=== PATIENT | female | born 1995 | race Caucasian/White ===

== ENCOUNTER 2017-11-11 12:45 | Emergency (ER) | payer OTHER ==
[2017-11-11] MEDS: LIDOCAINE WITH 8.4% SOD BICARB 3 ML DISP.SYRIN. IJ (13:03)
== END 2017-11-11 14:18 | disposition home or self-care (01) ==
LOC: ER 12:45
DX: S61.011A Laceration without foreign body of right thumb without damage to nail, initial encounter (principal); Z91.040 Latex allergy status; Y28.8XXA Contact with other sharp object, undetermined intent, initial encounter; Y93.89 Activity, other specified; Y99.8 Other external cause status; Y92.89 Other specified places as the place of occurrence of the external cause
CPT/HCPCS: 12001; 99283-25

== ENCOUNTER 2018-05-28 09:10 | Emergency (ER) | payer OTHER ==
[2018-05-28] MEDS: IV NORMAL SALINE 1000ML BAG 1,000 ML IV (10:17)
[2018-05-28] MEDS: KETOROLAC 30 MG/ML INJ. IV (10:18)
[2018-05-28] MEDS: methylPREDNISolone SOD SUCC PF 125 MG/2 ML VIAL. IV (10:18)
[2018-05-28] MEDS: ONDANSETRON PF 4 MG/2 ML VIAL. IV (10:22)
[2018-05-28] MEDS ORDERED: ONDANSETRON PF 4 MG/2 ML VIAL. (10:24)
[2018-05-28 10:26] LABS: ANION GAP 5 (6-14); BLOOD UREA NITROGEN 12 mg/dL (7-20); CALCIUM 8.6 mg/dL (8.5-10.1); CARBON DIOXIDE 29 mmol/L (21-32); CHLORIDE 103 mmol/L (98-107); CREATININE 0.9 mg/dL (0.6-1.0); GLUCOSE 117 mg/dL (70-99); POTASSIUM 3.6 mmol/L (3.5-5.1); SODIUM 137 mmol/L (136-145)
[2018-05-28 10:54] LABS: BASO % 0 % (0-3); EOS % 0 % (0-3); HEMATOCRIT 37.3 % (36.0-47.0); HEMOGLOBIN 12.7 g/dL (12.0-15.5); LYMPH # 0.7 x10^3/uL (1.0-4.8); LYMPH % 6 % (24-48); MEAN CORPUSCULAR HEMOGLOBIN 32 pg (25-35); MEAN CORPUSCULAR HGB CONC 34 g/dL (31-37); MEAN CORPUSCULAR VOLUME 93 fL (79-100); MONO # 0.9 x10^3/uL (0.0-1.1); MONO % 8 % (0-9); NEUT # 9.2 x10^3uL (1.8-7.7); NEUT % 86 % (31-73); PLATELET COUNT 154 x10^3/uL (140-400); RED BLOOD COUNT 4.01 x10^6/uL (3.50-5.40); RED CELL DISTRIBUTION WIDTH 12.9 % (11.5-14.5); WHITE BLOOD COUNT 10.8 x10^3/uL (4.0-11.0)
[2018-05-28 10:57] LABS: ADD MAN DIFF? YES
[2018-05-28 13:28] LABS: % BANDS 7 % (0-9); % LYMPHS 13 % (24-48); % MONOS 6 % (0-10); % SEGS 74 % (35-66)
[2018-05-28 13:30] LABS: PLT ESTIMATE ADEQUATE (ADEQUATE)
== END 2018-05-28 11:50 | disposition home or self-care (01) ==
LOC: ER 09:10
DX: H60.501 Unspecified acute noninfective otitis externa, right ear (principal); H66.91 Otitis media, unspecified, right ear; Z91.040 Latex allergy status
CPT/HCPCS: 36415; 80048; 85007; 85025; 96365; 96375; 99284; J0690; J1885; J2405; J2930; J7030

== ENCOUNTER → 2018-09-12 | Outpatient (CLI) | payer OTHER ==
[2018-05-28 09:10] VITALS: BP 135/83
[~2018-09-12] MED LIST: HYDR-971 PO; ONDA4TAB10 SL
[2018-09-12 01:24] LABS: ALBUMIN 4.2 g/dL (3.4-5.0); ALBUMIN/GLOBULIN RATIO 1.2 (1.0-1.7); CALCIUM 9.9 mg/dL (8.5-10.1); GFR 69.3; POTASSIUM 3.8 mmol/L (3.5-5.1); TOTAL BILIRUBIN 0.7 mg/dL (0.2-1.0); TOTAL PROTEIN 7.8 g/dL (6.4-8.2)
[2018-09-12 01:43] LABS: CHOLESTEROL/HDL RATIO 2.7
== END | disposition home or self-care (01) ==
LOC: LAB 00:39
PROVIDERS: ATTEND Family Medicine
DX: Z13.220 Encounter for screening for lipoid disorders (principal)
CPT/HCPCS: 36415; 80053; 80061

== ENCOUNTER 2018-11-14 23:54 | Emergency (ER) | payer OTHER ==
[~2018-11-14] VITALS: Ht 172.7 cm; Wt 72.6 kg
[~2018-11-14 23:54] MED LIST changes: +HYDR-3164 PO; -HYDR-971 PO
[2018-11-15] MEDS ORDERED: IPRATRPIUM/ALBUTEROL 0.5/2.5MG 3 ML NEBU. NEB ONE
[2018-11-15] MEDS ORDERED: predniSONE 10 MG TABLET PO ONE
[2018-11-15 00:01] VITALS: BP 119/63
[2018-11-15] MEDS ORDERED: AZIT250T PO (00:38)
[2018-11-15] MEDS ORDERED: HYDR5SUS PO (00:38)
[2018-11-15] MEDS ORDERED: ALBU2.5V8 INH (00:38)
[2018-11-15] MEDS ORDERED: PRED50TA PO (00:38)
--- NOTE | 2018-11-15 00:39 | PHYS DOC ---
Past Medical History Past Medical History: No Pertinent History Past Surgical History: No Surgical History Alcohol Use: Occasionally Drug Use: None Adult General Chief Complaint Chief Complaint: Congestion HPI HPI Patient is a 23 year old [f__sex] who presents with [] Review of Systems Review of Systems Constitutional: Denies fever or chills [] Eyes: Denies change in visual acuity, redness, or eye pain [] HENT: Denies nasal congestion or sore throat [] Respiratory: Denies cough or shortness of breath [] Cardiovascular: No additional information not addressed in HPI [] GI: Denies abdominal pain, nausea, vomiting, bloody stools or diarrhea [] : Denies dysuria or hematuria [] Musculoskeletal: Denies back pain or joint pain [] Integument: Denies rash or skin lesions [] Neurologic: Denies headache, focal weakness or sensory changes [] Endocrine: Denies polyuria or polydipsia [] All other systems were reviewed and found to be within normal limits, except as documented in this note. Current Medications Current Medications Current Medications Medications (Trade) Dose Ordered Sig/Rashel Start Time Stop Time Status Last Admin Dose Admin Albuterol/ Ipratropium (Duoneb) 3 ml 1X ONCE 11/15/18 00:00 11/15/18 00:01 DC 11/15/18 00:14 3 ML Prednisone (Prednisone) 50 mg 1X ONCE 11/15/18 00:00 11/15/18 00:01 DC 11/15/18 00:31 50 MG Allergies Allergies Allergies Coded Allergies Type Severity Reaction Last Updated Verified latex Allergy Unknown 11/11/17 Yes Physical Exam Physical Exam Constitutional: Well developed, well nourished, no acute distress, non-toxic appearance. [] HENT: Normocephalic, atraumatic, bilateral external ears normal, oropharynx moist, no oral exudates, nose normal. [] Eyes: PERRLA, EOMI, conjunctiva normal, no discharge. [] Neck: Normal range of motion, no tenderness, supple, no stridor. [] Cardiovascular:Heart rate regular rhythm, no murmur [] Lungs & Thorax: Bilateral breath sounds clear to auscultation [] Abdomen: Bowel sounds normal, soft, no tenderness, no masses, no pulsatile masses. [] Skin: Warm, dry, no erythema, no rash. [] Back: No tenderness, no CVA tenderness. [] Extremities: No tenderness, no cyanosis, no clubbing, ROM intact, no edema. [] Neurologic: Alert and oriented X 3, normal motor function, normal sensory function, no focal deficits noted. [] Psychologic: Affect normal, judgement normal, mood normal. [] Current Patient Data Vital Signs Vital Signs Date Time Temp Pulse Resp B/P (MAP) Pulse Ox O2 Delivery O2 Flow Rate FiO2 11/15/18 00:13 100 Room Air 11/15/18 00:01 99.0 78 20 119/63 (81) 99.0 EKG EKG [] Radiology/Procedures Radiology/Procedures [] Course & Med Decision Making Course & Med Decision Making Pertinent Labs and Imaging studies reviewed. (See chart for details) [] Dragon Disclaimer Dragon Disclaimer This electronic medical record was generated, in whole or in part, using a voice recognition dictation system. Departure Departure Impression: Primary Impression: Bronchitis Disposition: HOME, SELF-CARE Condition: STABLE Referrals: REYNA FALL DO (PCP) Patient Instructions: Acute Bronchitis Additional Instructions: Take the medications as directed. Do not drive or operate heavy machinery while taking the cough medication. Follow-up with your primary care provider in 3-4 days if not improving or return to the emergency department if worsening. Scripts Hydrocodone/Chlorphen Polis (HYDROCODONE-CHLORPHENIRAM SUSP) 5 Ml Cherry.er.12h 5 ML PO PRN Q12HR PRN for COUGH, #120 ML 0 Refills Prov: ROHIT DAMICO APRN 11/15/18 Prednisone (PREDNISONE) 50 Mg Tablet 1 TAB PO DAILY for bronchitis, #5 TAB Prov: ROHIT DAMICO APRN 11/15/18 Albuterol Sulfate (Proair Hfa) 8.5 Gm Hfa.aer.ad 1 PUFF INH PRN Q6HRS PRN for SHORTNESS OF BREATH, #1 INHALER Prov: ROHIT DAMICO APRN 11/15/18 Azithromycin (ZITHROMAX) 250 Mg Tablet 1 PKG PO UD for bronchitis, #1 PKG Prov: ROHIT DAMICO APRN 11/15/18 ROHIT DAMICO APRN Nov 15, 2018 00:39
== END 2018-11-15 00:43 | disposition home or self-care (01) ==
LOC: ER 23:54
DX: J40 Bronchitis, not specified as acute or chronic (principal); Z91.040 Latex allergy status
CPT/HCPCS: 94640; 99283; J7512; J7620

== ENCOUNTER 2018-12-24 17:14 | Emergency (ER) | payer OTHER ==
[~2018-12-24] VITALS: Ht 172.7 cm; Wt 72.6 kg
[~2018-12-24 17:14] MED LIST changes: +ALBU2.5V8 INH; +AZIT250T PO; +HYDR5SUS PO; +PRED50TA PO
[2018-12-24 17:18] VITALS: BP 132/73
[2018-12-24] MEDS ORDERED: AMOX1TAB61 PO (17:50)
--- NOTE | 2018-12-24 17:50 | PHYS DOC ---
Past Medical History Past Medical History: Other Additional Past Medical Histor: SWELLING Past Surgical History: No Surgical History Alcohol Use: Occasionally Drug Use: None Adult General Chief Complaint Chief Complaint: SORE THROAT HPI HPI Patient is a 23 year old female who presents to the emergency department with complaints of a sore throat for the last 6 days. Patient also reports nasal congestion, fatigue, and body aches. She denies any known fever, nausea, vomiting, diarrhea, cough, shortness breath, ear pain, or rash. Patient states she has had mono in the past and her symptoms feel similar to that. Review of Systems Review of Systems Constitutional: Denies fever or chills [] Eyes: Denies redness, or eye pain [] HENT: See HPI Respiratory: Denies cough or shortness of breath [] Cardiovascular: No additional information not addressed in HPI [] GI: Denies abdominal pain, nausea, vomiting, or diarrhea [] Musculoskeletal: Reports body aches Integument: Denies rash or skin lesions [] Neurologic: Denies headache, focal weakness or sensory changes [] Allergies Allergies Allergies Coded Allergies Type Severity Reaction Last Updated Verified latex Allergy Unknown 11/11/17 Yes Physical Exam Physical Exam Constitutional: Well developed, well nourished, no acute distress, non-toxic appearance. [] HENT: Normocephalic, atraumatic, bilateral external ears normal, bilateral TMs nomral, cobblestone appearance of posterior pharynx with mild erythema, oropharynx moist, no oral exudates, nasal turbinates edematous and erythematous ; maxillary sinus TTP. Eyes: conjunctiva normal, no discharge. [] Neck: Normal range of motion, no tenderness, supple, no stridor. [] Cardiovascular:Heart rate regular rhythm, no murmur [] Lungs & Thorax: Bilateral breath sounds clear to auscultation [] Skin: Warm, dry, no erythema, no rash. [] Extremities: No cyanosis, ROM intact Neurologic: Alert and oriented X 3, normal motor function, normal sensory function, no focal deficits noted. [] Psychologic: Affect normal, judgement normal, mood normal. [] Current Patient Data Vital Signs Vital Signs Date Time Temp Pulse Resp B/P (MAP) Pulse Ox O2 Delivery O2 Flow Rate FiO2 12/24/18 17:18 98.5 90 16 132/73 (92) 99 Room Air 98.5 EKG EKG [] Radiology/Procedures Radiology/Procedures rapid strep negative[] Course & Med Decision Making Course & Med Decision Making Pertinent Labs and Imaging studies reviewed. (See chart for details) dx: Sinusitis Rx for augmentin written. Tylenol or ibuprofen as needed for pain/fever. Increase clear fluids, recommend using cool mist humidifier. Follow up with PCP if sx persist, return to ER if sx worsen. Patient verbalized an understanding of home care, medications, follow-up, and return to ED instructions and was in agreement with the plan of care. [] Dragon Disclaimer Dragon Disclaimer This electronic medical record was generated, in whole or in part, using a voice recognition dictation system. Departure Departure Impression: Primary Impression: Acute maxillary sinusitis, unspecified Additional Impression: Pharyngitis, acute Disposition: 01 HOME, SELF-CARE Condition: STABLE Referrals: HANNA LOW MD (PCP) Patient Instructions: Sinusitis, [id number], Viral and Bacterial Pharyngitis , [id number] Additional Instructions: Fill prescription(s) and use as directed. Recommend use of a Cool mist humidifier in room at bedtime. Alternate Tylenol or ibuprofen as needed for pain /fever. Increase clear fluids. Avoid airway triggers such as smoke, fragrance, dust, and pollen. Recommend warm salt water gargles as needed for relief of discomfort. Follow-up with primary care doctor if symptoms persist. Return to the ER if symptoms worsen. Scripts Amoxicillin/Potassium Clav (AUGMENTIN 875-125 TABLET) 1 Each Tablet 1 TAB PO BID, #14 TAB 0 Refills Prov: MELODIE CAREY APRN 12/24/18 Problem Qualifiers Primary Impression: Acute maxillary sinusitis, unspecified Recurrence: not specified as recurrent Qualified Codes: J01.00 - Acute maxillary sinusitis, unspecified Additional Impression: Pharyngitis, acute Pharyngitis/tonsillitis etiology: unspecified etiology Qualified Codes: J02.9 - Acute pharyngitis, unspecified MELODIE CAREY POULTRY SCIENTIST Dec 24, 2018 17:50
[2019-06-27] MEDS ORDERED: ASPI325T8 PO (08:52)
== END 2018-12-24 17:51 | disposition home or self-care (01) ==
LOC: ER 17:14
DX: J02.9 Acute pharyngitis, unspecified (principal); J01.00 Acute maxillary sinusitis, unspecified; R53.83 Other fatigue; Z91.040 Latex allergy status
CPT/HCPCS: 87070; 87880; 99283

== ENCOUNTER 2019-02-07 03:43 | Emergency (ER) | payer OTHER ==
[~2019-02-07] VITALS: Ht 172.7 cm; Wt 72.6 kg
[~2019-02-07 03:43] MED LIST changes: +AMOX1TAB61 PO
[2019-02-07 03:45] VITALS: BP 128/79
--- NOTE | 2019-02-07 04:34 | PHYS DOC ---
Past Medical History Past Medical History: Other Additional Past Medical Histor: SWELLING Past Surgical History: No Surgical History Alcohol Use: Occasionally Drug Use: None Adult General Chief Complaint Chief Complaint: not feeling well HPI HPI Patient is a 23-year-old female who presents with complaint of just not feeling well. She indicates that she has been nauseated and having some aches in her back and abdomen. She denies any fever. She denies any vomiting or diarrhea. Review of Systems Review of Systems Constitutional: Denies fever or chills [] Respiratory: Denies cough or shortness of breath [] Cardiovascular: No additional information not addressed in HPI [] GI: Denies abdominal pain, vomiting or diarrhea. Admits to nausea. [] : Denies dysuria or hematuria [] Musculoskeletal: Positive backache/pain [] Allergies Allergies Allergies Coded Allergies Type Severity Reaction Last Updated Verified latex Allergy Unknown 11/11/17 Yes Physical Exam Physical Exam Constitutional: Well developed, well nourished, no acute distress, non-toxic appearance. [] Cardiovascular: Regular rate and rhythm[] Lungs & Thorax: Bilateral breath sounds clear to auscultation [] Abdomen: Bowel sounds normal, soft, no tenderness. [] Skin: Warm, dry, no erythema, no rash. [] Current Patient Data Vital Signs Vital Signs Date Time Temp Pulse Resp B/P (MAP) Pulse Ox O2 Delivery O2 Flow Rate FiO2 02/07/19 03:45 97.9 85 18 128/79 (95) 97 Room Air 97.9 Lab Values Laboratory Tests Test 02/07/19 03:50 Maternal Serum HCG Beta Subunit < 1 mIU/mL (0-5) EKG EKG [] Radiology/Procedures Radiology/Procedures [] Course & Med Decision Making Course & Med Decision Making Pertinent Labs and Imaging studies reviewed. (See chart for details) [] Dragon Disclaimer Dragon Disclaimer This electronic medical record was generated, in whole or in part, using a voice recognition dictation system. Departure Departure Impression: Primary Impression: Normal exam Disposition: 01 HOME, SELF-CARE Condition: STABLE Referrals: HANNA LOW MD (PCP) Patient Instructions: Exam, Normal, Adult SENAIT BRYANT Jr. DO Feb 07, 2019 04:34
== END 2019-02-07 04:30 | disposition home or self-care (01) ==
LOC: ER 03:43
DX: Z04.89 Encounter for examination and observation for other specified reasons (principal); R10.9 Unspecified abdominal pain; M54.9 Dorsalgia, unspecified; R11.0 Nausea; Z91.040 Latex allergy status
CPT/HCPCS: 36415; 84702; 99283

== ENCOUNTER → 2019-06-12 | Outpatient (CLI) | payer OTHER ==
--- NOTE | 2019-06-12 15:09 | RAD ---
Examination: 4 views of the left knee HISTORY: History of left knee pain, injury COMPARISON: None available. FINDINGS: The alignment of the knee joint grossly appears unremarkable. There is no acute fracture or dislocation identified. IMPRESSION: No acute osseous findings. Electronically signed by: Feliciano Brito MD (06/12/2019 3:06 PM) [place] [id number]
== END | disposition home or self-care (01) ==
LOC: RAD 12:22
PROVIDERS: ATTEND Family Medicine
DX: M25.562 Pain in left knee (principal)
CPT/HCPCS: 73564

== ENCOUNTER → 2019-06-12 | Outpatient (CLI) | payer OTHER ==
--- NOTE | 2019-06-12 14:00 | RAD ---
MR#: [id number] Date of Study: 06/12/2019 Ordering Physician: LESLYE TOLEDO, Referring Physician: LESLYE TOLEDO, Tech: Reyna Rachel RDMS, RVT, RTR APPROVED REPORT Patient Location : OUT-PATIENT Indications Lower Extremity Edema : Bilateral VENOUS INSUFFICIENCY Deep System Deep Venous Reflux present : Bilateral Greater Saphenous Veins (GSV) Significant venous relux noted in the RIGHT GSV at the following levels : Superficial Femoral Junctio n, Proximal Thigh, Mid Thigh, Distal Thigh Significant venous relux noted in the LEFT GSV at the following levels : Superficial Femoral Junction , Proximal Thigh, Mid Thigh, Distal Thigh, Proximal Calf, Mid Calf, Distal Calf Findings Grayscale images of the bilateral saphenofemoral junctions do not reveal any obvious evidence of thro mbus. The bilateral greater and lesser saphenous veins do not show any evidence of thrombus. The right great saphenous vein has a diameter of 5 mm and has a reflux time of 1.7 seconds. The left great saphenous vein measures 4.6 mm and has a reflux time of 2.6 seconds. Bilateral lesser saphenous veins do not show any evidence of reflux. Critical Notification Critical Value: No <Conclusion> 1. Positive for reflux in the bilateral greater saphenous veins. Signed by : Leslye Toledo, Electronically Approved : 06/12/2019 14:00:26
== END | disposition home or self-care (01) ==
LOC: US 14:52
PROVIDERS: ATTEND Internal Medicine Cardiovascular Disease
DX: I87.2 Venous insufficiency (chronic) (peripheral) (principal)
CPT/HCPCS: 93970

== ENCOUNTER → 2019-06-19 | Outpatient (CLI) | payer OTHER ==
--- NOTE | 2019-06-19 14:30 | KCIC ---
STUDY: MRI of the left knee without contrast INDICATION: Left knee swelling. COMPARISON: None. TECHNIQUE: Multiplanar MR imaging of the left knee performed without the use of intravenous or intra-articular contrast. FINDINGS: Menisci: The medial and lateral menisci are intact. Cruciate ligaments: The PCL is intact. The ACL is intact with an ganglion cyst as seen on image 14 series 5. Collateral ligaments: The medial and lateral collateral ligamentous structures are intact. The IT band is unremarkable. Tendons: The extensor tendon complex is within normal limits, as are the additional tendons at the knee. Cartilage: Patellofemoral: Mild chondral heterogeneity without full thickness defect at the mid to inferior medial trochlea, image 15 series 5. Lateral compartment: Intact. Medial compartment: Intact. Bones: No acute fracture. Miscellaneous: No significant knee joint effusion. Very mild lateral patellar tilt with the TT-TG distance within normal limits at 15 mm. IMPRESSION: 1. No acute internal derangement of the left knee. 2. ACL intracruciate ganglion cyst, image 14 series 5, which may be an incidental finding or could potentially be related to prior partial ACL injury. Intact traversing fibers remain. Electronically signed by: GRIFFIN BARLOW MD (06/19/2019 2:27 PM) [facility]
== END | disposition home or self-care (01) ==
LOC: KCIC MRI 12:18
PROVIDERS: ATTEND Orthopaedic Surgery
DX: M67.462 Ganglion, left knee (principal)
CPT/HCPCS: 73721

== ENCOUNTER 2019-06-27 05:57 | Day surgery (SDC) | payer OTHER ==
[~2019-06-27] VITALS: Ht 172.7 cm; Wt 77.1 kg
[2019-06-27] MEDS ORDERED: BUPIVACAINE MPF 0.5% 30 ML VIAL. ONE (06:04)
[2019-06-27] MEDS ORDERED: DEXAMETHASONE SOD PHOS 4 MG/ML VIAL ONE (06:14)
[2019-06-27] MEDS ORDERED: ONDANSETRON PF 4 MG/2 ML VIAL. ONE (06:14)
[2019-06-27] MEDS ORDERED: LIDOCAINE 2% PF 5 ML VIAL. ONE (06:14)
[2019-06-27] MEDS ORDERED: PROPOFOL 20 ML IV ONE (06:14)
[2019-06-27] MEDS ORDERED: fentaNYL PF VIAL 100 MCG/2 ML VIAL ONE (06:31)
[2019-06-27] MEDS ORDERED: SPIR50TA4 PO (06:36)
[2019-06-27] MEDS ORDERED: HYDROmorphone 2 MG/ML VIAL IV PRN (07:00)
[2019-06-27] MEDS ORDERED: ONDANSETRON PF 4 MG/2 ML VIAL. IV PRN (07:00)
[2019-06-27] MEDS ORDERED: MORPHINE SULFATE 2 MG/ML VIAL. IV PRN (07:00)
[2019-06-27] MEDS ORDERED: PROCHLORPERAZINE 10 MG/2 ML VIAL. IV PRN (07:00)
[2019-06-27] MEDS ORDERED: LIDOCAINE 1% PF 2 ML VIAL. ID PRN (07:00)
[2019-06-27] MEDS ORDERED: fentaNYL PF VIAL 100 MCG/2 ML VIAL IV PRN ×2 (07:00)
[2019-06-27] MEDS ORDERED: IV RINGERS,LACTATED 1000ML 1,000 ML IV SCH (07:00)
[2019-06-27] MEDS ORDERED: HYDR-2765 PO ×2 (08:30→08:31)
[2019-06-27] MEDS ORDERED: HYDROcodone/APAP 7.5/325MG 1 TAB TABLET PO ONE (08:45)
--- NOTE | 2019-06-27 08:51 | DISCH ---
DISCHARGE INSTRUCTIONS Condition on Discharge Condition on Discharge: Stable Activity After Discharge Activity Instructions for Disc: Other, see below (advance activity slowly as tolerated, expect off work about 2 weeks due to swelling) Weight Bearing Status after Di: As tolerated Diet after Discharge Diet after Discharge: Regular Wound Incision Care Wound/Incision Care: Change dressing (remove dressing in 2 days may then shower no soaking until sutures out) Contacting the after DC Call your doctor for: Concerns you may have Follow-Up Follow up with: Dr. Quintero 10 days JORDAN QUINTERO MD Jun 27, 2019 08:51
[2019-06-27] MEDS ORDERED: ASPI325T8 PO (08:52)
[2019-06-27 09:01] VITALS: BP 114/65
--- NOTE | 2019-06-27 14:20 | PDOC4 ---
Operative Note Operative Note Date of surgery: 06/27/2019 Preoperative diagnosis: Symptomatic anterior cruciate ligament cyst Postoperative diagnosis: Same plus medial parapatellar plica Operative procedure: Left knee arthroscopy debridement of anterior cruciate ligament synovial cyst and excision medial parapatellar plica Surgeon: Leon Anesthesia: Gen. Estimated blood loss: 2 mL Complications: None Operative indications: Please see my preoperative clinic note for detailed operative indications and note that Eric was having sharp pain in bringing her knee rapidly out into extension. MRI had shown the presence of an ACL cyst which can likely cause impingement ligaments and menisci were otherwise intact and I told her that this is likely but not certainly the cause of her pain and described the possibility of debridement and addressing any other pathologic conditions. We discussed the possibility of infection nerve or blood vessel damage continued pain medical or other anesthetic consultations among others all her questions were answered and she wishes to proceed with surgical evaluation and treatment. Operative text: Patient was identified procedure verified patient placed in the supine position on the operating table. After adequate amounts of general anesthesia were administered the left lower extremity was prepped and draped in standard sterile fashion and after timeout was performed exsanguinated by Esmarch bandage tourniquet inflated to 350 mmHg a lateral portal was established a medial portal established using spinal needle localization and the knee joint was systematically examined. No loose bodies were noted in the gutters or suprapatellar pouch she had excellent patellofemoral tracking and condition of the cartilage surfaces medial meniscus was probed and found to be intact as was the lateral meniscus medial and lateral cartilage surfaces noted to be in excellent condition free from any significant chondromalacia. She did have a large cyst anterior to the anterior cruciate ligament that definitely did impingement as the knee was brought into full extension this was debrided back to a normal ACL contour which was otherwise uncompromised. She did have a medial parapatellar plica and although there was not surrounding redness there was some mild cartilage irregularity over the edge of the medial femoral condyle and therefore I elected to debride the plica back to normal contour of the joint synovium. The joint was drained of arthroscopic fluid was closed with nylon suture a total of 30 mL half percent plain Marcaine were injected around the portals and fat pad area sterile dressings were applied patient was returned to recovery room in stable condition having tolerated procedure well toes are noted be warm pink find deflation of tourniquet after total tourniquet time of approximately 13 minutes JORDAN REECE MD Jun 27, 2019 14:20
== END 2019-06-27 09:36 | disposition home or self-care (01) ==
LOC: SURG 05:57
PROVIDERS: ATTEND Orthopaedic Surgery
DX: M67.52 Plica syndrome, left knee (principal); M25.862 Other specified joint disorders, left knee; Z91.040 Latex allergy status
CPT/HCPCS: 29875; 81025; A7015; C1782; J0690; J1100; J2001; J2405; J2704; J3010; J3490

== ENCOUNTER → 2019-07-08 | Outpatient (CLI) | payer OTHER ==
[2019-06-27 09:01] VITALS: BP 114/65
[~2019-07-08] MED LIST changes: +ASPI325T8 PO; +HYDR-2765 PO; +SPIR50TA4 PO
--- NOTE | 2019-07-08 15:18 | CARD ---
MR#: [id number] Date of Study: 07/08/2019 Ordering Physician: LAVERNE DAVIS, Referring Physician: LAVERNE DAVIS Tech: Reyna PATET: Vinicius SINGH;IRENE APPROVED REPORT Patient StatusOUT-PATIENT Hose Operator: Reyna Rachel RVT: Vinicius SINGH;IRENE Procedure(s) performed: Endovenous Venaseal ablation of the Left greater saphenous vein. INDICATION FOR PROCEDURE The indication(s) include : Symptomatic Chronic Venous Insufficiency with Varicose Veins, lower extre mity pain and edema. PROCEDURE NARRATIVE After explaining the risks, benefits and alternative options, informed consent was obtained from sylvain ent. Patient was brought to the procedure suite and duplex ultrasound was used to map out the insuffi cient saphenous vein. The access site was determined and marked on the overlying skin. The depth and diameter of the vein (s) to be treated was documented. The patient was placed supine on the procedure table and the leg was prepped and draped using sterile technique. Ultrasound guidance was again used to localize the access site. 1% lidocaine was injected into the sk in and subcutaneous tissues for local anesthesia. Using ultrasound guidance, access was obtained in t he saphenous vein with a 19-gauge thin-walled needle followed by introduction of a short guidewire. T he intraluminal location was confirmed with ultrasound and a 7 Spanish 7 cm sheath was inserted into t he vein. A 0.035 inch guidewire from the Venaseal kit was then introduced and positioned at the saphe nofemoral junction using ultrasound guidance. The 80 cm 7 Spanish introducer sheath/dilator was positi oned 5 cm from the saphenofemoral junction. The guidewire and dilator were removed and the remaining sheath was flushed with sterile saline, with the syringe remaining in place prior to the next steps. The Cyanoacrylate adhesive was loaded into a 3 cc syringe that was then attached to the 5F delivery c athter and loaded on to the Dispenser gun.The catheter was primed precisely and this 'assembly' was i ntroduced through the 7 Spanish sheath and positioned 5 cm caudal to the saphenofemoral junction under ultrasound guidance. While applying compression cephalad to the cathter tip with the ultrasound jiang sducer, 0.10 cc of the VenaSeal adhesive was delivered into the vein by pulling the trigger of the di sylvester gun. The catheter was pulled back 1 cm and another 0.10 cc of the adhesive was delivered foll owing which the catheter was pulled back 3 cm. Compression was applied over the vein for 3 minutes. T he catheter tip position was confirmed again using the ultrasound, 0.10 cc Venaseal adhesive delivere d, catheter pulled back 3 cm and compression applied for 30 seconds. These steps were repeated to tr eat the entire length of the incompetent vein. Following the last injection and compression sequence, the catheter and introducer sheath were pulled out from the access site. Hemostasis was achieved with manual compression and an adhesive bandage wa s applied to the incision. Ultrasound confirmed complete coaptation and closure of the treated segmen ts of the greater saphenous vein, and the absence of any DVT at the saphenofemoral junction. Vein pepe gth treated was 56 cm. The drapes were removed and the patient cleaned and prepared for discharge. Patient tolerated the pro cedure well. There were no immediate complications. Postop ultrasound check scheduled for 48-72 hours and the patient was given written postop instructions. Signed by : Laverne Davis, Electronically Approved : 07/08/2019 15:18:06
== END ==
LOC: VNUS 13:52
PROVIDERS: ATTEND Internal Medicine Cardiovascular Disease
DX: I83.812 Varicose veins of left lower extremity with pain (principal)
CPT/HCPCS: 36482

== ENCOUNTER → 2019-07-09 | Outpatient (CLI) | payer OTHER ==
[2019-06-27 09:01] VITALS: BP 114/65
--- NOTE | 2019-07-09 11:25 | RAD ---
MR#: [id number] Date of Study: 07/09/2019 Ordering Physician: LESLYE TOLEDO, Referring Physician: LESLYE TOLEDO, Tech: Jordon Sykes MBA, RDMS, RVT, RDCS, RTR APPROVED REPORT Left Lower Extremity Venous Study for DVT Patient Location: OUT-PATIENT Indications s/p lt gsv ablation Vein Imaging (Left) CFV (L): Compressible SFJ (L): Compressible FEM (L): Compressible POP (L): Compressible DFV (L): Compressible PTV (L): Spontaneous GSV (L): Absent Flow Peroneals (L): Spontaneous Doppler Evaluation (Left) CFV (L):Spontaneous POP (L):Spontaneous Findings On the left, the grayscale images of the common femoral, superficial femoral and popliteal veins do n ot demonstrate any evidence of thrombus and these veins appear to be compressible. The below-knee vei ns again were not well visualized but grossly appear to be compressible. Spectral imaging and color D oppler do not reveal any evidence of obstruction to flow with normal respirophasic variation above th e knee. The below-knee veins demonstrate spontaneous flow. Critical Notification Critical Value: No <Conclusion> 1. No evidence of DVT in the LLE. 2. Successful GSV ablation Signed by : Leslye Toledo, Electronically Approved : 07/09/2019 11:25:13
== END | disposition home or self-care (01) ==
LOC: US 11:02
PROVIDERS: ATTEND Internal Medicine Cardiovascular Disease
DX: I87.2 Venous insufficiency (chronic) (peripheral) (principal)
CPT/HCPCS: 93971